=== PATIENT | male | born 1950 | race Caucasian/White ===

== ENCOUNTER 2021-03-19 15:42 | Emergency (ER) | payer MEDICARE ==
[2021-03-19 16:04] VITALS: RESP 18; TEMP 97.7
--- NOTE | 2021-03-19 16:32 | ED ---
Extremity Problem HPI - General Chief complaint: Extremity Problem,Nontraumatic Stated complaint: Lft elbow pain Time Seen by Provider: 03/19/21 16:32 Source: patient Mode of arrival: ambulatory Limitations: no limitations - History of Present Illness Initial comments: Clara is a relatively healthy 70-year-old male who is brought to the emergency department today for evaluation of redness and pain of his left elbow. Patient denies any injuries. Patient states that over the past couple days he has noticed pain in his elbow, worse with any movement, pain improves when he holds her elbow in a flexed position. States that his noted that his elbow is quite red and swollen and advised that he come to the hospital for evaluation. Patient denies any fevers chills nausea vomiting. Patient denies any recent illness or infections. Patient denies any recent dental work. Patient has no history of gout. Patient has no history of hospitalizations, IV access, bacteremia. - Related Data Home Medications Medication Instructions Recorded Confirmed Acetaminophen Tab [Tylenol Tab] 1,000 mg PO Q6HR PRN 03/19/21 03/19/21 Aspirin EC [Ecotrin Low Dose] 81 mg PO HS 03/19/21 03/19/21 Tamsulosin [Flomax] 0.4 mg PO HS 03/19/21 03/19/21 Allergies Allergy/AdvReac Type Severity Reaction Status Date / Time No Known Allergies Allergy Verified 03/19/21 17:43 Review of Systems ROS Statement: Those systems with pertinent positive or pertinent negative responses have been documented in the HPI. ROS Other: All systems not noted in ROS Statement are negative. Past Medical History Additional Past Medical History / Comment(s): TOF baby History of Any Multi-Drug Resistant Organisms: None Reported Past Surgical History: Orthopedic Surgery Additional Past Surgical History / Comment(s): open heart as baby Past Psychological History: No Psychological Hx Reported Smoking Status: Never smoker Past Alcohol Use History: None Reported Past Drug Use History: None Reported General Exam - General Exam Comments Initial Comments: Physical Exam GENERAL: Patient is well-developed and well-nourished. Patient is nontoxic and well- hydrated and is in no distress. HENT: Normocephalic, Atraumatic. EYES: PERRL, EOMI PULMONARY: Unlabored respirations. No audible rales rhonchi or wheezing was noted. CARDIOVASCULAR: There is a regular rate and rhythm without any murmurs gallops or rubs. ABDOMEN: Soft and nontender with normal bowel sounds. SKIN: Left elbow is erythematous : Deferred NEUROLOGIC: Patient is alert and oriented x3. Moving all extremities spontaneously MUSCULOSKELETAL: Decreased range of motion of the left elbow due to pain, erythema noted Able to pronate and supinate the wrist without pain in the elbow PSYCHIATRIC: Normal psychiatric evaluation. Limitations: no limitations Course Vital Signs 03/19/21 03/19/21 03/19/21 15:59 17:04 18:00 Temperature 97.7 F Pulse Rate 78 78 78 Respiratory 18 18 18 Rate Blood Pressure 100/53 119/68 O2 Sat by Pulse 99 97 97 Oximetry 03/19/21 03/19/21 19:00 19:16 Temperature 97.7 F Pulse Rate 78 71 Respiratory 18 18 Rate Blood Pressure 124/72 O2 Sat by Pulse 97 97 Oximetry Medical Decision Making - Medical Decision Making Patient was seen and evaluated labs and x-ray imaging were obtained Labs with no leukocytosis, elevated CRP Patient care, physical exam findings and labs were discussed with orthopedics monument letterer Dr. Lobo, at this time I have a high suspicion for gout rather than septic joint. This was discussed with Dr. Garsia who is in agreement recommends patient be discharged home advised to be nothing by mouth at midnight and follow-up in the office tomorrow morning 8 AM for possible joint aspiration for definitive diagnosis When I advised the patient to follow with orthopedics in the morning he is agreeable, at this time patient reports that is reminded him that he has had 2 episodes in the past of redness and pain in his left foot. At this point I again feel reassured the patient is likely suffering from gout rather than a septic joint. Pt will see Dr. Lobo in office first thing tomorrow morning. - Lab Data Result diagrams: 03/19/21 17:11 03/19/21 17:11 Lab Results 03/19/21 03/19/21 03/19/21 Range/Units 17:11 17:11 17:11 WBC 7.5 (3.8-10.6) k/uL RBC 4.78 (4.30-5.90) m/uL Hgb 13.6 (13.0-17.5) gm/dL Hct 40.2 (39.0-53.0) % MCV 84.2 (80.0-100.0) fL MCH 28.6 (25.0-35.0) pg MCHC 33.9 (31.0-37.0) g/dL RDW 13.1 (11.5-15.5) % Plt Count 247 (150-450) k/uL MPV 6.7 Neutrophils % 69 % Lymphocytes % 22 % Monocytes % 5 % Eosinophils % 2 % Basophils % 0 % Neutrophils # 5.2 (1.3-7.7) k/uL Lymphocytes # 1.7 (1.0-4.8) k/uL Monocytes # 0.4 (0-1.0) k/uL Eosinophils # 0.1 (0-0.7) k/uL Basophils # 0.0 (0-0.2) k/uL PT 10.1 (9.0-12.0) sec INR 0.9 (<1.2) APTT 22.6 (22.0-30.0) sec Sodium 138 (137-145) mmol/L Potassium 3.9 (3.5-5.1) mmol/L Chloride 103 (98-107) mmol/L Carbon Dioxide 27 (22-30) mmol/L Anion Gap 8 mmol/L BUN 18 (9-20) mg/dL Creatinine 0.77 (0.66-1.25) mg/dL Est GFR (CKD-EPI)AfAm >90 (>60 ml/min/1.73 sqM) Est GFR (CKD-EPI)NonAf >90 (>60 ml/min/1.73 sqM) Glucose 125 H (74-99) mg/dL Plasma Lactic Acid Brandyn (0.7-2.0) mmol/L Uric Acid 3.4 L (3.5-8.5) mg/dL Calcium 9.8 (8.4-10.2) mg/dL Total Bilirubin 1.1 (0.2-1.3) mg/dL AST 30 (17-59) U/L ALT 13 (4-49) U/L Alkaline Phosphatase 50 (38-126) U/L C-Reactive Protein 7.2 H (<1.0) mg/dL Total Protein 7.3 (6.3-8.2) g/dL Albumin 4.3 (3.5-5.0) g/dL 03/19/21 Range/Units 17:11 WBC (3.8-10.6) k/uL RBC (4.30-5.90) m/uL Hgb (13.0-17.5) gm/dL Hct (39.0-53.0) % MCV (80.0-100.0) fL MCH (25.0-35.0) pg MCHC (31.0-37.0) g/dL RDW (11.5-15.5) % Plt Count (150-450) k/uL MPV Neutrophils % % Lymphocytes % % Monocytes % % Eosinophils % % Basophils % % Neutrophils # (1.3-7.7) k/uL Lymphocytes # (1.0-4.8) k/uL Monocytes # (0-1.0) k/uL Eosinophils # (0-0.7) k/uL Basophils # (0-0.2) k/uL PT (9.0-12.0) sec INR (<1.2) APTT (22.0-30.0) sec Sodium (137-145) mmol/L Potassium (3.5-5.1) mmol/L Chloride (98-107) mmol/L Carbon Dioxide (22-30) mmol/L Anion Gap mmol/L BUN (9-20) mg/dL Creatinine (0.66-1.25) mg/dL Est GFR (CKD-EPI)AfAm (>60 ml/min/1.73 sqM) Est GFR (CKD-EPI)NonAf (>60 ml/min/1.73 sqM) Glucose (74-99) mg/dL Plasma Lactic Acid Brandyn 0.9 (0.7-2.0) mmol/L Uric Acid (3.5-8.5) mg/dL Calcium (8.4-10.2) mg/dL Total Bilirubin (0.2-1.3) mg/dL AST (17-59) U/L ALT (4-49) U/L Alkaline Phosphatase (38-126) U/L C-Reactive Protein (<1.0) mg/dL Total Protein (6.3-8.2) g/dL Albumin (3.5-5.0) g/dL Disposition Clinical Impression: Left elbow pain Disposition: HOME SELF-CARE Condition: Stable Additional Instructions: Do NOT eat or drink anything overnight Follow up at [facility] at 8am tomorrow, you will be seen by Dr Lobo or his PA - you do not need to make an appointment, he will be expecting you If you have any concerning findings you may need surgery to wash out your joint Take tylenol and apply ice to the elbow overnight Is patient prescribed a controlled substance at d/c from ED?: No Referrals: None,Stated [Primary Care Provider] - 1-2 days
[2021-03-19 17:31] LABS: Basophils % (A) 0 %; Eosinophils # (A) 0.1 k/uL (0-0.7); Eosinophils % (A) 2 %; HCT 40.2 % (39.0-53.0); HGB 13.6 gm/dL (13.0-17.5); Lymphocytes # (A) 1.7 k/uL (1.0-4.8); Lymphocytes % (A) 22 %; MCH 28.6 pg (25.0-35.0); MCHC 33.9 g/dL (31.0-37.0); MCV 84.2 fL (80.0-100.0); Mean Platelet Volume 6.7; Monocytes # (A) 0.4 k/uL (0-1.0); Monocytes % (A) 5 %; Neutrophils # (A) 5.2 k/uL (1.3-7.7); Neutrophils % (A) 69 %; Platelet Count 247 k/uL (150-450); RBC 4.78 m/uL (4.30-5.90); RDW 13.1 % (11.5-15.5); WBC 7.5 k/uL (3.8-10.6)
[2021-03-19 17:43] LABS: INR 0.9 (<1.2); Partial Thromboplastin Time 22.6 sec (22.0-30.0); Prothrombin Time 10.1 sec (9.0-12.0)
[2021-03-19 17:50] LABS: ALT 13 U/L (4-49); AST 30 U/L (17-59); African American GFR (CKD) >90 (>60 ml/min/1.73 sqM); Albumin 4.3 g/dL (3.5-5.0); Alkaline Phosphatase 50 U/L (38-126); Anion Gap 8 mmol/L; Blood Urea Nitrogen 18 mg/dL (9-20); C Reactive Protein 7.2 mg/dL (<1.0); Calcium 9.8 mg/dL (8.4-10.2); Carbon Dioxide 27 mmol/L (22-30); Chloride 103 mmol/L (98-107); Glucose 125 mg/dL (74-99); Non-African American GFR(CKD) >90 (>60 ml/min/1.73 sqM); Potassium 3.9 mmol/L (3.5-5.1); Sodium 138 mmol/L (137-145); Total Bilirubin 1.1 mg/dL (0.2-1.3); Total Protein 7.3 g/dL (6.3-8.2); Uric Acid 3.4 mg/dL (3.5-8.5)
[2021-03-19 19:17] VITALS: BP 124/72; PULSE 71
--- NOTE | 2021-03-19 19:26 | XR ---
PROCEDURE: XR elbow complete LT - 3V DATE AND TIME: 03/19/2021 7:09 PM CLINICAL INDICATION: PHH; possible infection TECHNIQUE: Department protocol COMPARISON: None FINDINGS: SOFT TISSUES: There is an anterior fat pad present, with radiographs indistinctness of the periarticu lar soft tissues, consistent with elbow joint effusion. No periarticular bony erosions or focal osteo penia. SKELETAL STRUCTURES: There is no fracture or malalignment. Prominent multifocal osteophytic spur form ation is noted, consistent with prominent degenerative joint changes, most advanced laterally. IMPRESSION: Elbow joint effusion
== END 2021-03-19 19:17 | disposition home or self-care (01) ==
LOC: EC 15:42
DX: M25.522 Pain in left elbow (principal); M79.89 Other specified soft tissue disorders; Z79.82 Long term (current) use of aspirin
CPT/HCPCS: 36415; 80053; 83605; 84145; 84550; 85025; 85610; 85730; 86140; 87040; 93005; 99284

== ENCOUNTER → 2021-03-20 | Outpatient (CLI) | payer MEDICARE ==
[2021-03-20 12:58] LABS: Appearance,BF Cloudy; Nucleated Cells, Body Fluid 10050 /uL; RBC, Body Fluid 16300 /uL
[2021-03-20 13:05] LABS: Mononuclear WBC,Body Fluid 27 %; Polynuclear WBC,Body Fluid 73 %; Total Cells Counted,Body Fluid 100
[2021-03-20 14:28] LABS: Basophils # (A) 0.02 X 10*3/uL (0.00-0.10); Basophils % (A) 0.2 %; Eosinophils # (A) 0.07 X 10*3/uL (0.04-0.35); Eosinophils % (A) 0.6 %; HGB 12.6 g/dL (13.0-17.0); Lymphocytes # (A) 1.36 X 10*3/uL (0.90-5.00); MCH 28.1 pg (27.0-32.0); MCHC 32.3 g/dL (32.0-37.0); MCV 86.9 fL (80.0-97.0); Mean Platelet Volume 9.3 fL (9.5-12.2); Monocytes # (A) 0.66 X 10*3/uL (0.20-1.00); Monocytes % (A) 5.8 %; Neutrophils # (A) 9.21 X 10*3/uL (1.80-7.70); Platelet Count 273 X 10*3/uL (140-440); RBC 4.49 X 10*6/uL (4.40-5.60); RDW 13.1 % (11.5-14.5); WBC 11.36 X 10*3/uL (4.50-10.00)
[2021-03-20 17:08] LABS: Cyclic Citrull Pep IgG Unit <0.5 U/mL; Cyclic Citrullinated Pep IgG NEGATIVE (NEGATIVE)
[2021-03-20 17:53] LABS: Erythrocyte Sedimentation Rate 54 mm/Hr (0-20)
[2021-03-21 01:06] LABS: African American GFR (CKD) 99.9 (60.0-200.0); Anion Gap 7.6 mmol/L (4.00-12.00); BUN/Creat Ratio 26.67 Ratio (12.00-20.00); C Reactive Protein 8.1 mg/dL (0.0-0.8); Calcium 9.7 mg/dL (8.7-10.3); Carbon Dioxide 29.4 mmol/L (21.6-31.8); Non-African American GFR(CKD) 86.2 (60.0-200.0); Potassium 4.3 mmol/L (3.5-5.5); Uric Acid 3.7 mg/dL (3.7-8.7)
[2021-03-21 01:13] LABS: T4, Free (Free Thyroxine) 1.2 ng/dL (0.80-1.80)
[2021-03-21 10:52] LABS: HLA B27 NEGATIVE
== END | disposition home or self-care (01) ==
LOC: LABWHC1 10:01
PROVIDERS: ATTEND Orthopaedic Surgery
DX: M19.022 Primary osteoarthritis, left elbow (principal); M19.132 Post-traumatic osteoarthritis, left wrist
CPT/HCPCS: 36415; 80048; 82164; 82306; 82550; 83520; 84439; 84443; 84450; 84460; 84550; 85025; 85652; 86038; 86140; 86200; 86431; 86812; 87070; 87075; 87205; 89050; 89060

== ENCOUNTER 2021-05-17 21:05 | Emergency (ER) | payer MEDICARE ==
[2021-05-17 21:15] VITALS: TEMP 98.3
[2021-05-17] MEDS ORDERED: HYDROcodone/APAP 5-325MG 1 EACH TAB PO STA (21:32)
[2021-05-17] MEDS ORDERED: KETOROLAC 15 MG/ML 1 ML VIAL IM STA (21:32)
--- NOTE | 2021-05-17 21:36 | ED ---
Extremity Problem HPI - General Chief complaint: Extremity Problem,Nontraumatic Stated complaint: L elbow pain Time Seen by Provider: 05/17/21 21:23 Source: patient, RN notes reviewed Mode of arrival: ambulatory Limitations: no limitations - History of Present Illness Initial comments: 70-year-old white male, alert and oriented 4 and well-appearing, presents to the emergency room with complaints of left elbow swelling since yesterday. Patient states that he has had this before and he was fluid drained from his elbow at the orthopedic office. He was also given a cortisone injection at that time, that was approximately 8 weeks ago. Patient states that he did not injure it he states that it is swollen again and was having difficulty bending it. It is painful to touch. The pain gets so bad that he gets nauseated at times. He's been taking Tylenol and aspirin with no relief. MD Complaint: extremity pain -: days(s) (1) Location: left, elbow History of Same: Yes Radiation: none Severity scale (1-10): 10 Quality: constant Improves with: immobilization (Movement) Worsens with: other Associated Symptoms: denies other symptoms - Related Data Home Medications Medication Instructions Recorded Confirmed Acetaminophen Tab [Tylenol Tab] 1,000 mg PO Q6HR PRN 03/19/21 03/19/21 Aspirin EC [Ecotrin Low Dose] 81 mg PO HS 03/19/21 03/19/21 Tamsulosin [Flomax] 0.4 mg PO HS 03/19/21 03/19/21 Allergies Allergy/AdvReac Type Severity Reaction Status Date / Time No Known Allergies Allergy Verified 05/17/21 21:13 Review of Systems ROS Statement: Those systems with pertinent positive or pertinent negative responses have been documented in the HPI. ROS Other: All systems not noted in ROS Statement are negative. Past Medical History Additional Past Medical History / Comment(s): TOF baby History of Any Multi-Drug Resistant Organisms: None Reported Past Surgical History: Orthopedic Surgery Additional Past Surgical History / Comment(s): open heart as baby Past Psychological History: No Psychological Hx Reported Smoking Status: Never smoker Past Alcohol Use History: None Reported Past Drug Use History: None Reported General Exam Limitations: no limitations General appearance: alert, in no apparent distress Head exam: Present: atraumatic, normocephalic, normal inspection Eye exam: Present: normal appearance, PERRL, EOMI. Absent: scleral icterus, conjunctival injection, periorbital swelling ENT exam: Present: normal exam, normal oropharynx, mucous membranes moist Neck exam: Present: normal inspection, full ROM. Absent: tenderness, meningismus, lymphadenopathy, thyromegaly Respiratory exam: Present: normal lung sounds bilaterally. Absent: respiratory distress, wheezes, rales, rhonchi, stridor, chest wall tenderness, accessory muscle use, decreased breath sounds, prolonged expiratory Cardiovascular Exam: Present: regular rate, normal rhythm, normal heart sounds. Absent: systolic murmur, diastolic murmur, rubs, gallop, clicks GI/Abdominal exam: Present: soft, normal bowel sounds. Absent: distended, tenderness, guarding, rebound, rigid Left Elbow exam: Present: tenderness, swelling, effusion, pain w/ pronation/supination, tenderness over radial head. Absent: full ROM, abrasion, laceration, ecchymosis, deformity, crepitus, dislocation Back exam: Present: full ROM. Absent: tenderness, CVA tenderness (R), CVA tenderness (L), muscle spasm, paraspinal tenderness, vertebral tenderness Neurological exam: Present: alert, oriented X3, CN II-XII intact Psychiatric exam: Present: normal affect, normal mood Skin exam: Present: warm, dry, intact, normal color. Absent: rash, cyanosis, diaphoretic, erythema, petechiae, pallor, mottled Course Vital Signs 05/17/21 21:13 Temperature 98.3 F Pulse Rate 80 Respiratory 18 Rate Blood Pressure 123/65 O2 Sat by Pulse 97 Oximetry Medical Decision Making - Medical Decision Making X-ray of the left elbow shows soft tissue swelling with a joint effusion with posterior fat pad but no fracture or dislocation seen, this is chronic present on old exam dated 03/19/2021. Frank wrap applied to the left elbow and patient placed in a sling. he will be directed to follow up with Dr. Lobo this week. Rest, ice, elevate and wear Frank wrap until seen. Return if any worsening pain or fevers. Motrin for pain. Case discussed with Dr. Estrada Disposition Clinical Impression: Bursitis Disposition: HOME SELF-CARE Condition: Good Instructions (If sedation given, give patient instructions): Elbow Bursitis (ED) Additional Instructions: Wear Frank wrap, sling, and rest, ice and elevate left arm. Motrin as needed for pain and swelling. Follow-up with Dr. Lobo this week for continuation of care. Is patient prescribed a controlled substance at d/c from ED?: No Referrals: Hunter Mcclain MD [Primary Care Provider] - 1-2 days Time of Disposition: 22:39
--- NOTE | 2021-05-17 22:18 | XR ---
EXAMINATION TYPE: XR elbow complete LT DATE OF EXAM: 05/17/2021 COMPARISON: 03/19/2021 HISTORY: Pain TECHNIQUE: 4 views FINDINGS: There is elbow joint effusion with posterior fat pad. I see no fracture nor dislocation. Th ere is some posterior soft tissue swelling. The radial head is intact. IMPRESSION: Soft tissue swelling and joint effusion. No fracture seen. This is consistent with some c hronic synovitis and also present on the old exam.
[2021-05-17 22:53] VITALS: BP 118/68; PULSE 76; RESP 16
== END 2021-05-17 22:45 | disposition home or self-care (01) ==
LOC: EC 21:05
DX: M70.32 Other bursitis of elbow, left elbow (principal); Z79.82 Long term (current) use of aspirin; Z79.899 Other long term (current) drug therapy
CPT/HCPCS: 73080; 96372; 99283; J1885

== ENCOUNTER → 2023-07-04 | Outpatient (CLI) | payer MEDICARE ==
[2023-07-04 15:22] LABS: African American GFR (CKD) >90 (>60 ml/min/1.73 sqM); Blood Urea Nitrogen 22 mg/dL (9-20); Non-African American GFR(CKD) 82 (>60 ml/min/1.73 sqM)
--- NOTE | 2023-07-04 23:45 | CT ---
CT CHEST FOR PULMONARY EMBOLISM. EXAMINATION TYPE: CT angio chest DATE OF EXAM: 07/04/2023 INDICATION: Thoracic aortic aneurysm. CT DLP: 416.2 mGycm, Automated exposure control for dose reduction was used. CONTRAST: Patient injected with 100 ml mL of Isovue 370. COMPARISON: TECHNIQUE: CT of the chest is performed on a spiral scan at 2 mm thick sections. Study is performed with intravenous contrast timed for evaluation of thoracic Arctic aneurysm. This will limit addition al portions of the evaluation. 3-D MIP images reconstructed by the technologist are reviewed on the computer in the coronal and sagittal planes. FINDINGS: Lung windows appear clear. No enlarged mediastinal or hilar adenopathy is. The ascending aorta diameter at the level of the kristin n pulmonary artery is 4.6 cm. The main pulmonary artery diameter at the bifurcation is 2.4 cm. The aorta at the mid thoracic arch is 2.7 cm. Aorta at the aortic root is 4.6 cm. Aorta at the diaphr agm 2.[address] section through the upper abdomen. No suspicious upper abdominal abnormality is evident. IMPRESSION: 1. Ascending thoracic aortic aneurysm 4.6 cm
== END | disposition home or self-care (01) ==
LOC: RADCTMAIN 14:36
PROVIDERS: ATTEND Internal Medicine Interventional Cardiology
DX: I71.21 Aneurysm of the ascending aorta, without rupture (principal)
CPT/HCPCS: 82565; 84520; 71275; 36415; Q9967